=== PATIENT | female | born 1940 | race Caucasian/White ===

== ENCOUNTER 2017-07-14 12:51 | Emergency (ER) | payer OTHER ==
[~2017-07-14] VITALS: Ht 162.6 cm; Wt 77.1 kg
[2017-07-14] MEDS ORDERED: ANASTROZOLE5 GM (13:16)
[2017-07-14] MEDS ORDERED: COZAAR100 MG (13:17)
[2017-07-14] MEDS ORDERED: SIMVASTATIN10 MG (13:17)
[2017-07-14] MEDS ORDERED: DICLOFENAC SODI50 MG PO (15:25)
[2017-07-14] MEDS ORDERED: DIAZEPAM10 MG PO (15:25)
== END 2017-07-14 18:02 | disposition home or self-care (01) ==
LOC: ER 12:51
DX: M54.32 Sciatica, left side (principal)